=== PATIENT | female | born 1995 | race Caucasian/White ===

== ENCOUNTER 2022-10-02 07:16 | Day surgery (SDC) | payer OTHER ==
[~2022-10-02] VITALS: Ht 165.1 cm; Wt 98.9 kg
[2022-10-02 07:40] LABS: HCG SERUM/URINE (NEG/POS) NEGATIVE (NEGATIVE)
[2022-10-02] MEDS ORDERED: BACLOFEN10 MG PO (07:58)
[2022-10-02 10:59] VITALS: BP 109/59
== END 2022-10-02 10:06 | disposition home or self-care (01) ==
LOC: ORM 07:16
PROVIDERS: ATTEND Physical Medicine & Rehabilitation
DX: G89.4 Chronic pain syndrome (principal); M79.18 Myalgia, other site; M53.3 Sacrococcygeal disorders, not elsewhere classified; M79.2 Neuralgia and neuritis, unspecified
CPT/HCPCS: J1100; Q9967